=== PATIENT | male | born 1980 | race Caucasian/White ===

== ENCOUNTER → 2023-09-08 10:48 | Outpatient (CLI) | payer OTHER, SELFPAY ==
--- NOTE | ~2023-09-08 | US_ITS ---
US venous doppler [facility] DATE: 09/08/2023 11:25 INDICATION: Left calf pain TECHNIQUE: Real-time and color flow imaging and Doppler analysis of veins of both lower extremities COMPARISON: None FINDINGS: The great saphenous veins are patent. There is spontaneous and phasic flow and normal augme ntation and color flow signal and normal compression of the deep veins of both lower extremities. IMPRESSION: No evidence of deep venous thrombosis of the lower extremities Reviewed, dictated and finalized at Location A. Reviewed, dictated and finalized at location B. 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
== END ==
PROVIDERS: PCP Family Medicine; Visit Provider Family Medicine
DX: M79.662 Pain in left lower leg (principal)
CPT/HCPCS: 93970

== ENCOUNTER 2023-10-26 09:49 | Emergency (ER) | payer OTHER, SELFPAY ==
[2023-10-26 09:57] VITALS: BP 104/81; PULSE 73; RESP 16; TEMP 36.8; O2SAT 99
--- NOTE | 2023-10-26 10:33 | ED.URI ---
HPI - URI/Sore Throat General Chief Complaint: Upper Respiratory Infection Stated Complaint: sinus congestion Time Seen by Provider: 10/26/23 10:25 Source: patient, RN notes reviewed and old records reviewed Mode of arrival: ambulatory Limitations: no limitations History of Present Illness HPI Narrative: 43 year old male presents to [facility] with complaints of sinus pressure, sore throat,bilateral ear pain, headache, and cough since last Wednesday. Patient reports general malaise has not had any known fevers or any body aches. Patient states that his cough is mainly dry and he has had some greenish tinged nasal drainage. Patient reports no shortness of breath,no nausea or vomiting or diarrhea. MD elicited complaint: cough, sore throat, rhinorrhea, nasal congestion, sinus pain and other (ear pain bilaterally) Onset (ago): day(s) (6-7 days) Consistency: constant Pain scale (0-10): 3 Able to tolerate fluids by mouth: Yes Treatments prior to arrival: other (DayQuil and NyQuil) Related Data Allergies Allergy/AdvReac Type Severity Reaction Status Date / Time No Known Allergies Allergy Verified 10/26/23 09:51 Review of Systems Review of Systems: CONSTITUTIONAL: Reports malaise,no chills, sweats,no known fever EYES: Denies visual changes, redness, or discharge. ENT: Reports rhinorrhea, congestion, sinus pain, bilateral otalgia and positive for sore throat. CARDIOVASCULAR: Denies chest pain, palpitations, or edema. RESPIRATORY: Reports cough.? Denies dyspnea. GASTROINTESTINAL: Denies abdominal pain, nausea, vomiting, diarrhea SKIN: Denies rash or itching. MUSCULOSKELETAL: Denies myalgia. NEUROLOGIC:Reports headache. All systems reviewed & are unremarkable except as noted in HPI and below PMFSH Social History Social History (Updated 10/28/23 @ 08:16 by Maxine Wu NP) Smoking status: Never smoker Alcohol intake: current Alcohol use details: social Substance use type: does not use Living arrangements: with family Gender identity (if verbalized by the patient): Male Comments At time of signature, agree with nursing past medical, surgical, social and family history. There is no relevant family history pertinent to the presenting complaint Exam Narrative: GENERAL: Well-appearing, well-nourished, and in no acute distress. HEAD: Normocephalic EYES: PERRLA, conjunctivae clear ENT: Nares clear, turbinates edematous and erythematous, yellowish green discharge, sinus pressure, headache. Mucous membranes moist.Right TM red, Left TM pearly hernandez with dull light reflex; no tragal tenderness. Oropharynx erythematous without lesions. Tonsils not enlarged and without exudate, no drooling, no hoarseness, no trismus, uvula midline. NECK: Supple. No lymphadenopathy CHEST: Clear to auscultation, breath sounds equal. No wheezing, rhonchi, rales, or stridor. No respiratory distress, speaks in full sentences.cough,SAO2 99% on room air HEART: Regular rate and rhythm. No murmur heard. SKIN: Warm, dry, no rash. NEURO: Alert and oriented x3. PSYCH: Normal mood and affect Course Course Emergency Course: Patient is aware of diagnosis, understands and agrees to treatment plan.? Anticipatory guidance given.? Patient agrees to follow-up as directed and is aware of reasons to seek care at the emergency department. Portions of this record may have been created with voice recognition software Level of Care: Express Care Visit Vital Signs Vital signs: Vital Signs Temperature 36.8 C 10/26/23 09:57 Pulse Rate 73 10/26/23 09:57 Respiratory Rate 16 10/26/23 09:57 Blood Pressure 104/81 10/26/23 09:57 Pulse Oximetry 99 10/26/23 09:57 Temperature 36.8 C 10/26/23 09:57 Pulse Rate 73 10/26/23 09:57 Respiratory Rate 16 10/26/23 09:57 Blood Pressure 104/81 10/26/23 09:57 Pulse Oximetry 99 10/26/23 09:57 Reviewed MDM - URI/Sore Throat MDM Narrative Medical
== END 2023-10-26 10:41 | disposition home or self-care (01) ==
PROVIDERS: Emergency Provider Registered Nurse; PCP Family Medicine
DX: H66.91 Otitis media, unspecified, right ear (principal); J06.9 Acute upper respiratory infection, unspecified
CPT/HCPCS: 87081; 87880; 99213; G0463

== ENCOUNTER 2024-07-20 07:57 | Emergency (ER) | payer OTHER, SELFPAY ==
--- NOTE | 2024-07-20 08:23 | ED.EAR ---
HPI - Ear Problem General Chief complaint: Ear Stated complaint: bilateral ear pain Time Seen by Provider: 07/20/24 08:23 Source: patient, RN notes reviewed and old records reviewed Mode of arrival: ambulatory Limitations: no limitations History of Present Illness HPI Narrative: 43 year old male presents to [facility] care with complaints of bilateral ear pain with some ringing in his ears for the past month with recently nasal congestion and drainage.Patient reports that he has had no fevers cough, sore throat or any sharp pain to his ears. Patient reported he has not been taking any OTC medications for his symptoms. MD Complaint: ear pain and other (ringing in ears) Location: bilateral Severity: moderate Discharge from ear: Reports no Associated symptoms ear: tinnitus Treatment prior to arrival: none Related Data Allergies Allergy/AdvReac Type Severity Reaction Status Date / Time No Known Allergies Allergy Verified 07/20/24 08:23 Review of Systems Review of Systems: CONSTITUTIONAL: Denies malaise, chills, sweats, or fever. EYES: Denies visual changes, redness, or discharge. ENT: Reports rhinorrhea, congestion,no sinus pain,bilateral otalgia and no sore throat, reports bilateral ears ringing CARDIOVASCULAR: Denies chest pain, palpitations, or edema. RESPIRATORY: Reports no cough.? Denies dyspnea. GASTROINTESTINAL: Denies abdominal pain, nausea, vomiting, diarrhea SKIN: Denies rash or itching. MUSCULOSKELETAL: Denies myalgia. NEUROLOGIC: Denies headache. All systems reviewed & are unremarkable except as noted in HPI and below PMFSH Past Medical History Medical History Ear infection Kidney stone Surgical History Surgical History History of arthroscopic knee surgery Social History Social History Smoking status: Never smoker Alcohol intake: current Alcohol use details: social Substance use type: does not use Living arrangements: with family Gender identity (if verbalized by the patient): Male Comments At time of signature, agree with nursing past medical, surgical, social and family history. There is no relevant family history pertinent to the presenting complaint Exam Narrative: GENERAL: Well-appearing, well-nourished, and in no acute distress. HEAD: Normocephalic EYES: PERRLA, conjunctivae clear ENT: Nares clear, turbinates edematous and erythematous, clear discharge. Mucous membranes moist.Right TM red with some bulging left TM with dull light reflex no tragal tenderness. Oropharynx erythematous without lesions. Tonsils not enlarged and without exudate, no drooling, no hoarseness, no trismus, uvula midline. NECK: Supple. No lymphadenopathy CHEST: Clear to auscultation, breath sounds equal. No wheezing, rhonchi, rales, or stridor. No respiratory distress, speaks in full sentences.no cough noted SAO2 100% on room air HEART: Regular rate and rhythm. No murmur heard. SKIN: Warm, dry, no rash. NEURO: Alert and oriented x3. PSYCH: Normal mood and affect Course Course Emergency Course: Patient is aware of diagnosis, understands and agrees to treatment plan.? Anticipatory guidance given.? Patient agrees to follow-up as directed and is aware of reasons to seek care at the emergency department. Portions of this record may have been created with voice recognition software Level of Care: Express Care Visit Vital Signs Vital signs: Vital Signs Temperature 36.4 C L 07/20/24 08:24 Pulse Rate 77 07/20/24 08:24 Respiratory Rate 16 07/20/24 08:24 Blood Pressure 129/74 07/20/24 08:24 Pulse Oximetry 100 07/20/24 08:24 Temperature 36.4 C L 07/20/24 08:24 Pulse Rate 77 07/20/24 08:24 Respiratory Rate 16 07/20/24 08:24 Blood Pressure 129/74 07/20/24 08:24 Pulse Oximetry 100 07/20/24 08:24 Reviewed Medical Decision Making Differential Diagnosis Differential Diagnosis: URI, otitis media, ringing in ears, Medical Records Medical records reviewed: Yes I reviewed the external patient's medical records. Vital Signs Vital Signs: Vital Signs Temperature 36.4 C L 07/20/24 08:24 Pulse Rate 77 07/20/24 08:24 Respiratory Rate 16 07/20/24 08:24 Blood Pressure 129/74 07/20/24 08:24 Pulse Oximetry 100 07/20/24 08:24 Temperature 36.4 C L 07/20/24 08:24 Pulse Rate 77 07/20/24 08:24 Respiratory Rate 16 07/20/24 08:24 Blood Pressure 129/74 07/20/24 08:24 Pulse Oximetry 100 07/20/24 08:24 Critical Care Time Critical Care Time Critical Care Time: No Discharge Plan Discharge Clinical Impression: Otitis media, right Patient Disposition: Home, Self-Care Condition: Stable Instructions: Antibiotic Form, Ear Infection (GEN) Additional Instructions: Increase fluids especially juices and water [id number] cough and cold medicine of your choice for your symptoms Zyrtec Claritin or Miriam daily include plain Sudafed in a.m. heat to the face 20-30 minutes 4-6 times a day for pain Salt water gargles, throat lozenges or throat sprays as desired Antibiotic as directed--finished the medication If your symptoms persist, change or worsen significantly before you can contact your personal physician then please, without delay, go to the emergency department for further evaluation. Follow-up with PCP in 7-10 days or sooner if needed Follow up with PCP soon in regards to your blood pressure which is elevated above threshold for referral. Blood pressure above 120/80 may indicate pre-hypertension. 129/74 minimal systolic elevation Prescriptions: New amoxicillin 875 mg tablet 875 mg PO Q12H Qty: 20 0RF Rx Instructions: take all doses till completed Follow-up/Referrals: PHYSICIAN,GROCERY CLERK SELLING [Primary Care Provider] - Time of Disposition: 08:40 Quality [place] Coma Scale Eyes: Open Verbal: Oriented and Alert Motor: Follows Commands Jovita Coma Total Score: 15
[2024-07-20 08:24] VITALS: BP 129/74; PULSE 77; RESP 16; TEMP 36.4; O2SAT 100
== END 2024-07-20 08:46 | disposition home or self-care (01) ==
PROVIDERS: Emergency Provider Registered Nurse
DX: H66.91 Otitis media, unspecified, right ear (principal)
CPT/HCPCS: 99213; G0463

== ENCOUNTER 2024-11-02 09:29 | Emergency (ER) | payer OTHER, SELFPAY ==
--- NOTE | ~2024-11-02 | XR_ITS ---
EXAMINATION: XR chest 2V DATE: 11/02/2024 10:06 INDICATION: Cough and congestion. TECHNIQUE: Frontal and lateral views of the chest were obtained on 3 radiographs. COMPARISON: None. FINDINGS: There is no pneumonia, pleural effusion, or pneumothorax. The heart size is normal. There i s mild chronic anterior wedging of multiple vertebral bodies. IMPRESSION: 1. No acute cardiopulmonary disease. Reviewed, dictated and finalized at location [] AL HUSBANDRY PROFESSOR
--- NOTE | 2024-11-02 09:36 | ED.URI ---
HPI - URI/Sore Throat General Chief Complaint: Upper Respiratory Infection Stated Complaint: Upper Respiratory Symptoms Source: patient and RN notes reviewed Mode of arrival: ambulatory Limitations: no limitations History of Present Illness HPI Narrative: Patient is a 44-year-old male who presents to the [facility] with complaints of sinus pain and pressure, nasal congestion, and cough for the past week. Patient endorses a frequent nonproductive cough that is occasionally productive with brown sputum. He reports worsening nasal congestion. Denies recent fevers. Denies chest pain or shortness of breath. States that his symptoms started on Wednesday and seemed to get better over the weekend. However, by Wednesday his symptoms had exacerbated. Related Data Allergies Allergy/AdvReac Type Severity Reaction Status Date / Time No Known Allergies Allergy Verified 07/20/24 08:23 Review of Systems Review of Systems: CONSTITUTIONAL: Denies fever, chills, or sweats. EYES: Denies visual changes, redness, or discharge. ENT: Denies otalgia and sore throat. Reports nasal congestion. CARDIOVASCULAR: Denies chest pain, palpitations, or edema. RESPIRATORY: Reports cough but denies dyspnea. GASTROINTESTINAL: Denies abdominal pain, nausea, vomiting, or diarrhea. GENITOURINARY: Denies dysuria or hematuria. SKIN: Denies rash or itching. MUSCULOSKELETAL: Denies back pain, joint pain, or myalgia. NEUROLOGIC: Denies headache, numbness, or weakness. Pertinent positives per HPI. [facility] Past Medical History Medical History Kidney stone Ear infection Surgical History Surgical History History of arthroscopic knee surgery Social History Social History Smoking status: Never smoker Alcohol intake: current Alcohol use details: social Substance use type: does not use Living arrangements: with family Gender identity (if verbalized by the patient): Male Comments At the time of my signature, I reviewed and agree with the nursing past medical, surgical, social, and family history. There is no relevant family history pertinent to the patient complaint. Exam Narrative: GENERAL: This is a well-nourished, well-developed patient, in no apparent distress. HEAD: normocephalic, atraumatic. EYES: Sclera clear/white. Vision is grossly intact. EARS: External ears normal. Hearing grossly intact. NOSE: External nose normal with no obvious nasal discharge, nares without redness, no rhinorrhea. THROAT: Mucous membranes moist, posterior pharynx clear. NECK: Neck supple, non-tender without lymphadenopathy, masses or thyromegaly. CARDIOVASCULAR: Regular rate and rhythm without murmurs, gallops, or rubs. RESPIRATORY: Clear to auscultation. Breath sounds equal bilaterally. No wheezes, rales, or rhonchi. GASTROINTESTINAL: Abdomen soft, non-tender, nondistended. Bowel sounds are active. No hepato-splenomegaly, or palpable masses. No guarding. SKIN: warm, intact with no suspicious lesions or rash, good texture and turgor. NEURO: awake, alert, and oriented to person, place and time. There were no obvious focal neurologic abnormalities. Course Course Level of Care: Express Care Visit Vital Signs Vital signs: Vital Signs Temperature 98.7 F 11/02/24 09:49 Pulse Rate 83 11/02/24 09:49 Respiratory Rate 16 11/02/24 09:49 Blood Pressure 114/82 11/02/24 09:49 Pulse Oximetry 98 11/02/24 09:49 Temperature 98.7 F 11/02/24 09:49 Pulse Rate 83 11/02/24 09:49 Respiratory Rate 16 11/02/24 09:49 Blood Pressure 114/82 11/02/24 09:49 Pulse Oximetry 98 11/02/24 09:49 Reviewed MDM - URI/Sore Throat MDM Narrative Medical decision making narrative: Take steroids as directed. May use the inhaler every 4-6 hours as needed for coughing. Increase fluids at home. Avoid any and all smoke. May use a humidifier in the bedroom. Increase your Vitamin C. Follow-up with personal physician in 2-5 days. Differential Diagnosis Differential diagnosis: Likely upper respiratory infection, viral infection, bronchitis and other (pneumonia) Imaging Data Attestation: I personally reviewed and interpreted this imaging study as follows: Radiologist's impression: Close Chest X-Ray (Signed) Rigo Chen - 11/02/24 Launch?[facility] [address] [place] [address] XRay Report Signed Patient: Quan Summers : 1980 MR#: [id number] Age: 44 Acct:[id number] Loc: [id number] ADM Date: 11/02/24Attending Dr: Ordering Physician: Adrianne Boss APRN Date of Service: 11/02/24 Procedure(s): XR chest 2V Accession Number(s): [id number] cc: Adrianne Boss APRN; TUB PULLER PHYSICIAN~ EXAMINATION: XR chest 2V DATE: 11/02/2024 10:06 INDICATION: Cough and congestion. TECHNIQUE: Frontal and lateral views of the chest were obtained on 3 radiographs. COMPARISON: None. FINDINGS: There is no pneumonia, pleural effusion, or pneumothorax. The heart size is normal. There is mild chronic anterior wedging of multiple vertebral bodies. IMPRESSION: 1. No acute cardiopulmonary disease. Reviewed, dictated and finalized at location [] ICAL CARE UNIT MANAGER Please be advised this is a medical document. It is intended for [id number] communication. It is written in medical language and may contain unfamiliar abbreviations or verbiage. Medical documents are intended to carry relevant information, facts as evident, and the clinical opinion of the practitioner at the time of the encounter. This report may have been done utilizing a voice recognition system. Attempts have been made to correct errors. However, there may be uncorrected grammatical, spelling, and recognition errors present. The file time of this note does not necessarily represent the time of service. Dictated By: Rigo Chen MD 11/02/24 1007 Signed By: <Electronically signed by Rigo Chen MD in OV> 11/02/24 1008 Critical Care Time Critical Care Time Critical Care Time: No Discharge Plan Discharge Clinical Impression: Acute viral bronchitis Patient Disposition: Home, Self-Care Condition: Stable Instructions: Acute Bronchitis (ED) Additional Instructions: Take steroids as directed. May use the inhaler every 4-6 hours as needed for coughing. Increase fluids at home. Avoid any and all smoke. May use a humidifier in the bedroom. Increase your Vitamin C. Follow-up with personal physician in 2-5 days. Patient Language: [place] Prescriptions: New prednisone 50 mg tablet 50 mg PO DAILY 5 Days Qty: 5 0RF fluticasone propionate [Flonase Allergy Relief] 50 mcg/actuation spray,suspension 1 spray intranasal BID Qty: 16 0RF Rx Instructions: administer into each nostril albuterol sulfate [Ventolin HFA] 90 mcg/actuation HFA aerosol inhaler 2 puff inhalation QID PRN (Reason: shortness of breath or wheezing) Qty: 6.7 0RF No Action amoxicillin 875 mg tablet 875 mg PO Q12H Qty: 20 0RF Rx Instructions: take all doses till completed Follow-up/Referrals: PHYSICIAN,TUB PULLER [Primary Care Provider] - Time of Disposition: 10:19
[2024-11-02 09:49] VITALS: BP 114/82; PULSE 83; RESP 16; TEMP 37.1; O2SAT 98
== END 2024-11-02 10:22 | disposition home or self-care (01) ==
PROVIDERS: Emergency Provider Nurse Practitioner
DX: J20.8 Acute bronchitis due to other specified organisms (principal)
CPT/HCPCS: 71046; 99213; G0463

== ENCOUNTER 2025-01-26 11:01 | Outpatient (CLI) | payer OTHER, SELFPAY ==
--- NOTE | ~2025-01-26 | XR_ITS ---
Left elbow Technique: AP, oblique, and lateral views were obtained. Clinical History: Pain Findings: No acute fracture or dislocation is seen. Osseous alignment is anatomic. Joint spaces are p reserved. There is no displacement of the fat pads, and soft tissues are unremarkable. Impression: Unremarkable radiographs. Reviewed, dictated and finalized at location . Impression: Unremarkable radiographs.
== END 2025-01-26 11:02 | disposition home or self-care (01) ==
LOC: GOSHIMG 11:02
PROVIDERS: PCP Family Medicine; Visit Provider Family Medicine
DX: M25.522 Pain in left elbow (principal)
CPT/HCPCS: 73080

== ENCOUNTER 2025-01-26 11:17 | Outpatient (CLI) | payer OTHER, SELFPAY ==
--- OUTSIDE RECORDS SUMMARY | 2025-01-26 11:26 | XMS_ITS | Data Portability ---
Author Organization [facility] [employer], Main Office Address [address] [place] [address] Assessment No assessment recorded. Plan of Treatment Reminders Order Date Submit Date Provider Last Modified By Organization Details Last Modified Time Details Appointments None recorded. Lab None recorded. 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 Please call patient to schedule appointment . 2023 024 [email or web address] Vito Caballero [facility], [address] [facility], [facility] [address], [place], [address], 14:43:02 Procedures None recorded. Surgeries None recorded. Imaging US, duplex, venous, lower extremity - pain lateral lower left leg , plantr fasciitis left *Please call pt to schedule* 2023 024 [facility], [address], [place], [address], 4 16:46:34 Medication Orders None recorded. Patient TargetsNo targets recorded. Patient Instructions Encounter Date Encounter Id Patient Instructions Last Modified By Organization Details Last Modified Time 09/02/2023 [id number] Advised to get a Dr. 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 Please call patient to schedule appointment. Referring Physician: Laci Bucio, Family Medicine, Encounter Date: 09/02/2023 Results Created Date Observation Date Name Description Value Unit Range Abnormal Flag Note LastModifiedBy Organization Detail LastModifiedTime 08/06/20 21 08/06/2021 urina lysis , dipst ick Leukocytes (reference range: negative xiomara/ l) Negati ve Not Available [address] , [address], [place], [address], 08/06/2021 16:02:34 08/06/20 21 08/06/2021 urina lysis , dipst ick Nitrite (reference rage: negative mg/dl) negati ve Not Available [address] , [address], [place], [address], 08/06/2021 16:02:34 08/06/20 21 08/06/2021 urina lysis , dipst ick Urobilinogen (reference range: 0.2-1 mg/dl) 0.2 Not Available [address] , [address], [place], [address], 08/06/2021 16:02:34 08/06/20 21 08/06/2021 urina lysis , dipst ick Protein (reference range: negative mg/dl) Negati ve Not Available [address] , [address], [place], [address], 08/06/2021 16:02:34 08/06/20 21 08/06/2021 urina lysis , dipst ick pH (reference range: 5-7) 7.0 Not Available [address] , [address], [place], [address], 08/06/2021 16:02:34 08/06/20 21 08/06/2021 urina lysis , dipst ick Blood (reference range: negative [place]/ l) Negati ve Not Available [address] , [address], [place], [address], 08/06/2021 16:02:34 08/06/20 21 08/06/2021 urina lysis , dipst ick Specific [place] (reference range: 1.005-1.030) 1.020 Not Available [address] , [address], [place], [address], 08/06/2021 16:02:34 08/06/20 21 08/06/2021 urina lysis , dipst ick Ketone (reference range: negative mg/dl) Negati ve Not Available [address] , [address], [place], [address], 08/06/2021 16:02:34 08/06/20 21 08/06/2021 urina lysis , dipst ick Bilirubin (reference range: negative mg/dl) Negati ve Not Available [address] , [address], [place], [address], 08/06/2021 16:02:34 08/06/20 21 08/06/2021 urina lysis , dipst ick Glucose (reference range: negative mg/dl) Negati ve Not Available [address] , [address], [place], [address], 08/06/2021 16:02:34 08/06/20 21 08/06/2021 urina lysis , dipst ick Appearance Clear Not Available [address] , [address], [place], [address], 08/06/2021 16:02:34 08/06/20 21 08/06/2021 urina lysis , dipst ick Color Pale Yellow Not Available [id number] [address] , [address], [place], [address], 08/06/2021 16:02:34 09/08/19 24 09/08/2023 US, verito x, venou s, lower extre mity No observ ation record ed. [id number] [facility] [address], [place], [address], 09/15/2023 14:13:02 Result Notes None recorded. Problems Name Problem SNOMED Code Status Onset Date Resolution Date Notes Provider Name and Address Organization Details Recorded Time Inflammato ry disease of liver 698928591 Active Not Available [facility] 3 08:57:35 Acute sinusitis 82207166 Active Not Available [facility] 3 08:57:36 Microscopi c hematuria 102919499 Active Not Available [facility] 3 08:57:36 Pain in scrotum 15242691 Active Not Available [facility] 3 08:57:36 Lyme disease 20671587 Active Not Available [facility] 3 08:57:36 Flank pain 727140761 Active Not Available [facility] 3 08:57:36 Low back pain 132727748 Active Not Available [facility] 3 08:57:36 Sinusitis 88400747 Active Not Available [facility] 3 08:57:36 Pharyngiti s 318000273 Active Not Available [facility] 3 08:57:36 Upper respirator y infection 80289704 Active Not Available [facility] 3 08:57:36 Disorder of male genital organ 24130075 Active Not Available [facility] 3 08:57:36 Slowing of urinary stream 75874061 Active Not Available [facility] 3 08:57:36 Pain of left calf 3243922212793 109 Active 2023 ERICK Hinton [address], [place], [address] , [facility] [employer] 4 15:07:31 Plantar fasciitis 179805556 Active 2023 ERICK Hinton [address] [address], [place], [address] , [facility] [employer] 4 15:10:07 Problem Notes None recorded. Medical Equipment None Reported. Allergies Allergen ID Allergen Name Allergen Category Reaction Reaction Severity Criticality Documentation Date Start Date Code Code System Note Provider Name and Address Organization Details Recorded Time 54891 codeine medicatio n Not available Not available Not available 10/28/2022 2670 RxNorm Not Available [facility] 3 09:00:41 Medications Name Sig Start Date Stop Date Status Note LastModified by Organization Details LastModified Time azithromycin 250 mg tablet TK 2 TS PO AT ONCE TODAY THEN TK 1 T PO ONCE D FOR 4 DAYS active Not Available Not Available No t Available Cipro 500 mg tablet Take 1 tablet every 12 hours by oral route for 5 days. 04/28 completed Not Available Not Available Not Available amoxicillin 875 mg-potassium clavulanate 125 mg tablet Take 1 tablet every 12 hours by oral route. 03/21 completed Not Available Not Available Not Available Vitals Date Recorded Body weight Body mass index (BMI) Body height Body temperature Heart rate Oxygen saturation Oxygen saturation in Arterial blood by Pulse oximetry Systolic blood pressure Diastolic blood pressure Provider Name and Address Organization Details Last Updated DateTime 4 34058.9 2 g 23.9 kg/m2 185.42 cm 97.6 [degF] 86 /min 96 % 96 % 127 mm[Hg] 84 mm[Hg] Kim Matthews MA [employer] 4 14:53:48 Date Recorded Body mass index (BMI) Body height Oxygen saturation Oxygen saturation in Arterial blood by Pulse oximetry Heart rate Body temperature Body weight Systolic blood pressure Diastolic blood pressure Provider Name and Address Organization Details Last Updated DateTime 1 23.5 kg/m2 185.42 cm 99 % 99 % 71 /min 95.6 [degF] 66713.4 4 g 112 mm[Hg] 70 mm[Hg] Not Available [facility] 3 08:54:37 Social History None recorded. Functional Status None recorded. Mental Status None recorded. Family History Nothing Reported. Medical History No medical history recorded. Past Encounters Encounter ID Performer Location Encounter Start Date Encounter Closed Date Diagnosis/Indication Diagnosis SNOMED-CT Code Diagnosis ICD10 Code Diagnosis Note [id number] Oliver Dow MD [facility] Edwardscas llmauro [address] [facility] [place] [address] 08/06/2021 00:00:00 08/06/2021 16:36:17 [id number] Oliver Dow MD [facility] Debbie llmauro [address] [facility] [place] [address] 09/02/2023 14:41:21 09/02/2023 15:30:53 Pain of left calf 6127104141 399350 M79.662 Plantar fasciitis 839191 003 M72.2 Low back pain 378688195 M54.50 Health Concerns Section Related Observation LastModified by Organization Detai ls LastModified Time None Recorded Concern Status LastModified by Organization Details LastModified Time None Recorded Advance Directives Directive None Recorded Payers Encounter Date Sequence Insurance Name Policy Number Policy Sofia Covered Member ID Sofia Member ID Guarantor Name 09/02/2023 1 [facility] [id number] Quan Summers [id number] Quan Summers Notes Date Note Type Note Provider Name and Address Organization Details Recorded Time 09/02/2023 text/html pain bottom of left calf , does have plantar fasiitis. ERICK Hinton [address] [place] [address] [address], [facility] [address], [place], [address], [facility] 09/05/2023 09:05:58
--- OUTSIDE RECORDS SUMMARY | 2025-01-26 11:26 | XMS_ITS | Clinical Summary ---
Author Organization [facility] [employer] Address [address] [place] [address] Care Team Providers Care Thermostat Repairer Name Role Phone Unavailable Primary Care Provider Unavailabl e Source Comments [facility] [employer],non-owned Affiliates and Associated Physician Practices is amultiple site organization consisting of ambulatory clinics and hospital sitesin [place], [place], [place] and [place]. This disclosure is being madepursuant to the Care Everywhere program and may not contain all information available regarding this patient. Last updated 18.[facility] Allergies No known active allergies Medications * Be aware that medications may not be up to date on this document. Alwaysverify current medications with the patient. 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 Gender Identity Not on file Sexual Orientation Not on file Last Filed Vital Signs Vital Sign Reading Time Taken Comments Blood Pressure 106/70 11/04/2017 2:13 PM STEAM TRAP WORKER Pulse 68 11/04/2017 2:13 PM STEAM TRAP WORKER Temperature 36.5 C (97.7 F) 11/04/2017 2:13 PM STEAM TRAP WORKER Respiratory Rate 18 11/04/2017 2:13 PM STEAM TRAP WORKER Oxygen Saturation 98% 11/04/2017 2:13 PM STEAM TRAP WORKER Inhaled Oxygen Concentration - - Weight 74.8 kg (165 lb) 11/04/2017 2:13 PM STEAM TRAP WORKER Height 185.4 cm (6' 1) 11/04/2017 2:13 PM STEAM TRAP WORKER Body Mass Index 21.77 11/04/2017 2:13 PM STEAM TRAP WORKER Plan of Treatment Health Maintenance Due Date Last Done Comments OGEMILIE (AGES 45-75) - COL ON CA SCREENING 1979 COLON MONITORING 1979 COLONOSCOPY - COLON CA SCREENING 1979 CT COLONOGRAPHY - COLON CA SCREENING 1979 Colorectal Cancer Screening 1979 FIT - COLON CA SCREENING 1979 FLEX SIG - COLON CA SCREENING 1979 LIPID TESTING 1979 HIV SCREENING 1994 HEPATITIS C SCREENING 09/16/1997 DTAP/TDAP/TD VACCINES (1 - Tdap) 1998 HEPATITIS B VACCINE (1 of 3 - 19+ 3-dose series) 1998 COVID-19 VACCINE (1 - 2023-2 5 season) 2024 DEPRESSION SCREENING 08/30/2024 INFLUENZA VACCINE (Season Ended) 2025 ZOSTER VACCINE (1 of 2) 2029 HIB VACCINE Aged Out No longer eligi ble based on patient's age to complete this topic HPV VACCINE Aged Out No longer eligi ble based on patient's age to complete this topic MENINGOCOCCAL (Group B) VACC INE SHARED DECISION-MAKING Aged Out No longer eligibl e based on patient's age to complete this topic MENINGOCOCCAL GROUPS A/C/Y/W VACCINE Aged Out No longer eligible b ased on patient's age to complete this topic PNEUMOCOCCAL VACCINE Aged Out No long er eligible based on patient's age to complete this topic Insurance [facility]
[2025-01-26 16:35] LABS: Hematocrit 46.7 % (42.0-52.0); Hemoglobin 15.3 g/dL (14.0-18.0); Mean Corpuscular HGB Conc 32.8 g/dl (32-36); Mean Corpuscular Hemoglobin 30.6 pg (26-34); Mean Corpuscular Volume 93.4 fl (80-100); Mean Platelet Volume 9.8 fl (7.4-10.4); Platelet Count Result 199 k/mm3 (150-375); Red Cell Distribution Width 12.4 % (11.5-14.5); White Blood Count 6.2 K/mm3 (4.5-10.0)
[2025-01-26 20:00] LABS: Alanine Aminotransferase 30 U/L (6-50); Albumin Level 4.4 g/dL (3.5-5.1); Alkaline Phosphatase 51 U/L (38-126); Anion Gap 5 mmol/L (4-12); Aspartate Amino Transferase 67 U/L (17-59); Bilirubin,Total 0.7 mg/dL (0.2-1.3); Blood Urea Nitrogen 14 mg/dL (9-20); Calcium 9.6 mg/dL (8.4-10.2); Carbon Dioxide 29 mmol/L (22-30); Chloride 103 mmol/L (98-107); Cholesterol 174 mg/dL (0-200); Estimated Glomerular Filt Rate > 60; Glucose 95 mg/dL (65-110); HDL Direct 77 mg/dL; Potassium 4.4 mmol/L (3.4-5.0); Sodium 137 mmol/L (137-145); Triglycerides 50 mg/dL (<150)
[2025-01-26 20:11] LABS: LDL Cholesterol Direct 66 mg/dL
[2025-01-26 20:30] LABS: Prostate Specific Antigen 0.3 ng/mL (< OR = 4.0); Thyroid Stimulating Hormone 0.304 uIU/mL (0.465-4.680)
== END 2025-01-26 11:18 | disposition home or self-care (01) ==
LOC: ANHGOSHLAB 11:18
PROVIDERS: PCP Family Medicine; Visit Provider Family Medicine
DX: Z00.00 Encounter for general adult medical examination without abnormal findings (principal); Z79.899 Other long term (current) drug therapy; Z12.5 Encounter for screening for malignant neoplasm of prostate
CPT/HCPCS: 36415; 80053; 80061; 84153; 84443; 85027; G0103

== ENCOUNTER 2025-06-20 11:47 | Outpatient (CLI) | payer OTHER, SELFPAY ==
[2025-06-20 15:57] LABS: Alanine Aminotransferase 23 U/L (6-50); Albumin Level 4.6 g/dL (3.5-5.1); Alkaline Phosphatase 56 U/L (38-126); Aspartate Amino Transferase 44 U/L (17-59); Bilirubin,Total 0.8 mg/dL (0.2-1.3); Total Protein 7.8 g/dL (6.3-8.2)
[2025-06-20 16:33] LABS: Thyroid Stimulating Hormone 0.471 uIU/mL (0.465-4.680)
[2025-06-20 17:30] LABS: Free T4 Free Thyroxine 1.07 ng/dL (0.78-2.19)
== END 2025-06-20 11:48 | disposition home or self-care (01) ==
LOC: ANHGOSHLAB 11:47
PROVIDERS: PCP Family Medicine; Visit Provider Family Medicine
DX: R74.01 Elevation of levels of liver transaminase levels (principal); R79.89 Other specified abnormal findings of blood chemistry; Z79.899 Other long term (current) drug therapy
CPT/HCPCS: 36415; 80076; 84439; 84443

== ENCOUNTER 2025-07-18 01:10 | Day surgery (SDC) | payer OTHER, SELFPAY ==
[2025-07-06 12:14] VITALS: BMI 23.8
--- OUTSIDE RECORDS SUMMARY | 2025-07-18 05:29 | XMS_ITS | Clinical Summary ---
Author Organization [facility] [employer] Address [address] [place] [address] Care Team Providers Care Jukebox Checker Name Role Phone Unavailable Primary Care Provider Unavailabl e Source Comments [facility] [employer],non-owned Affiliates and Associated Physician Practices is amultiple site organization consisting of ambulatory clinics and hospital sitesin [place], [place], [place] and [place]. This disclosure is being madepursuant to the Care Everywhere program and may not contain all information available regarding this patient. Last updated 18.[facility] Allergies No known active allergies Medications * Be aware that medications may not be up to date on this document. Alwaysverify current medications with the patient. 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 Gender Identity Not on file Sexual Orientation Not on file Last Filed Vital Signs Vital Sign Reading Time Taken Comments Blood Pressure 106/70 11/04/2017 2:13 PM ENTERPRISE ENGINEER Pulse 68 11/04/2017 2:13 PM ENTERPRISE ENGINEER Temperature 36.5 C (97.7 F) 11/04/2017 2:13 PM ENTERPRISE ENGINEER Respiratory Rate 18 11/04/2017 2:13 PM ENTERPRISE ENGINEER Oxygen Saturation 98% 11/04/2017 2:13 PM ENTERPRISE ENGINEER Inhaled Oxygen Concentration - - Weight 74.8 kg (165 lb) 11/04/2017 2:13 PM ENTERPRISE ENGINEER Height 185.4 cm (6' 1) 11/04/2017 2:13 PM ENTERPRISE ENGINEER Body Mass Index 21.77 11/04/2017 2:13 PM ENTERPRISE ENGINEER Plan of Treatment Health Maintenance Due Date [...] of 3 - 19+ 3-dose series) 1998 HPV VACCINE (1 - 3-dose SCDM series) 2006 DEPRESSION SCREENING 08/30/2024 COVID-19 VACCINE (1 - 2024-2 6 season) 2025 INFLUENZA VACCINE (#1) 2025 ZOSTER VACCINE (1 of 2) 2029 [...] patient's age to complete this topic Insurance [facility]
[2025-07-18 08:39] VITALS: BP 110/69; PULSE 77; RESP 18; TEMP 36.3; O2SAT 99
[2025-07-18] MEDS: LACTATED RINGERS 1,000 ML 150 ML IV CONT (08:48)
--- NOTE | 2025-07-18 09:54 | P.PNAN_ITS ---
Anes - Initial Pre Proc Eval Procedure: Operation Date: 07/18/25 10:00 Proposed Procedures p Screening Colonoscopy - Valdemar Piper MD Date/Time: 07/18/25 09:54 Surgeon: Valdemar Piper MD Pre Op Diagnosis: Screening Patient Data Age: 44 Gender: M Height: 1.85 m Weight: 79 kg Last Vital Signs Temp 97.3 F L 07/18/25 08:39 Pulse 77 07/18/25 08:39 Resp 18 07/18/25 08:39 BP 110/69 07/18/25 08:39 Pulse Ox 99 07/18/25 08:39 O2 Del Method Room Air 07/18/25 08:39 Allergies Allergy/AdvReac Type Severity Reaction Status Date / Time No Known Allergies Allergy Verified 07/18/25 08:37 Home Medications ?Medication ?Instructions ?Recorded ?Confirmed ?Type No Home Medications 12/28/24 07/06/25 H istory Patient hx anesthesia problems: none Family hx anesthesia problems: none Results Review: All pre-operative results and documents have been reviewed as part of the pre- operative evaluation. [facility] Past Medical History Medical History History of broken leg Kidney stone Ear infection Surgical History Surgical History [place] teeth extracted History of arthroscopic knee surgery Social History Social History Smoking status: Never smoker Alcohol intake: current Drinks per week: 10 Alcohol use details: social Substance use: never Substance use type: does not use Living arrangements: with friend(s) Gender identity (if verbalized by the patient): Male Spiritual care concerns: No Anes - Eval Final PreProcedure Day of Procedure 07/18/25 09:54 Patient weight: normal Lungs: normal air movement Airway: Mallampati scale class II Neurological: alert and oriented Last oral intake: >/= 8 hours ASA classification: II Emergent: no Anesthetic plan: proceed Anesthesia type and monitoring: general GIVS and standard monitoring Results Review: All pre-operative results and documents have been reviewed as part of the pre- operative evaluation. Healthy, BMI 23. Active without cp or sob. Informed Consent: The patient's anesthetic plan and its attendant risks and benefits were discussed with the patient/family/POA. Questions were solicited and answers provided to the satisfaction of the patient/family/POA.
--- NOTE | 2025-07-18 09:54 | P.PNAN_ITS ---
Anes - Initial Pre Proc Eval Procedure: Operation Date: 07/18/25 10:00 Proposed Procedures p Screening Colonoscopy - Valdemar Piper MD Date/Time: 07/18/25 09:54 Surgeon: Valdemar Piper MD Pre Op Diagnosis: Screening Patient Data Age: 44 Gender: M Height: 1.85 m Weight: 79 kg Last Vital Signs Temp 36.3 C L 07/18/25 08:39 Pulse 77 07/18/25 08:39 Resp 18 07/18/25 08:39 BP 110/69 07/18/25 08:39 Pulse Ox 99 07/18/25 08:39 O2 Del Method Room Air 07/18/25 08:39 Allergies Allergy/AdvReac Type Severity Reaction Status Date / Time No Known Allergies Allergy Verified 07/18/25 08:37 Home Medications ?Medication ?Instructions ?Recorded ?Confirmed ?Type No Home Medications 12/28/24 07/06/25 H istory Patient hx anesthesia problems: none Family hx anesthesia problems: none Results Review: All pre-operative results and documents have been reviewed as part of the pre- operative evaluation. [facility] Past Medical History Medical History History of broken leg Kidney stone Ear infection Surgical History Surgical History [place] teeth extracted History of arthroscopic knee surgery Social History Social History Smoking status: Never smoker Alcohol intake: current Drinks per week: 10 Alcohol use details: social Substance use: never Substance use type: does not use Living arrangements: with friend(s) Gender identity (if verbalized by the patient): Male Spiritual care concerns: No Anes - Eval Final PreProcedure Day of Procedure 07/18/25 09:54 Patient weight: normal Heart: regular rate and rhythm Lungs: clear to auscultation Airway: Mallampati scale class 1 Neurological: alert and oriented Last oral intake: >/= 8 hours ASA classification: II Emergent: no Anesthetic plan: proceed Anesthesia type and monitoring: general GIVS and standard monitoring Results Review: All pre-operative results and documents have been reviewed as part of the pre- operative evaluation. Informed Consent: The patient's anesthetic plan and its attendant risks and benefits were discussed with the patient/family/POA. Questions were solicited and answers provided to the satisfaction of the patient/family/POA.
--- NOTE | 2025-07-18 09:54 | P.HP_ITS ---
H&P: HPI History of Present Illness Date/Time: 07/18/25 09:54 Chief Complaint: Screening colonoscopy Narrative: This is the patient's first colonoscopy. There are no GI symptoms and there is no family history of colorectal cancer. Review of Systems Review of Systems: All systems reviewed & are unremarkable except as noted in HPI and below PMFSH Past Medical History Medical History History of broken leg Kidney stone Ear infection Surgical History Surgical History [place] teeth extracted History of arthroscopic knee surgery Social History Social History Smoking status: Never smoker Alcohol intake: current Drinks per week: 10 Alcohol use details: social Substance use: never Substance use type: does not use Living arrangements: with friend(s) Gender identity (if verbalized by the patient): Male Spiritual care concerns: No Meds Home Medications and Allergies Home Medications ?Medication ?Instructions ?Recorded ?Confirmed ?Type No Home Medications 12/28/24 07/06/25 H istory Allergies Allergy/AdvReac Type Severity Reaction Status Date / Time No Known Allergies Allergy Verified 07/18/25 08:37 Vital Signs Vital Signs - 24 hr 07/18/25 08:39 Temperature 97.3 F L Pulse Rate 77 Respiratory Rate 18 Blood Pressure 110/69 Pulse Oximetry 99 Oxygen Delivery Room Air Exam Const: General: cooperative and healthy appearing Resp: Effort & Inspection: normal respiratory effort and able to speak in complete sentences Auscultation: clear to auscultation bilaterally Cardio: Rate: regular rate Rhythm: regular rhythm GI: Inspection: normal to inspection GI Palp: No No hepatosplenomegaly present Auscultation: normal bowel sounds Rectal Exam: deferred Skin: General skin exam: normal color Psych: Appearance: grossly normal Mental Status: mental status grossly normal Assessment and Plan Assessment and plan (1) Screening for colon cancer: Code(s): Z12.11 - Encounter for screening for malignant neoplasm of colon Status: Acute Assessment and Plan: The patient is deemed a good candidate for the procedure. Consent signed. Will proceed.
[2025-07-18] MEDS: SIMETHICONE ORAL SUSPENSION 20 MG/0.3 ML 30 ML BOTTLE 0.6 ML IRRIGATION (10:09)
[2025-07-18 10:18] VITALS: BP 108/69; PULSE 86; RESP 17; O2SAT 98
[2025-07-18 10:28] VITALS: BP 105/61; PULSE 70; RESP 14; O2SAT 100
[2025-07-18 10:38] VITALS: BP 109/68; PULSE 70; RESP 15; O2SAT 100
== END 2025-07-18 10:46 | disposition home or self-care (01) ==
PROVIDERS: PCP Family Medicine; Referring Provider Family Medicine; Visit Provider Internal Medicine Gastroenterology
PROC: 0DJD8ZZ Inspection of Lower Intestinal Tract, Via Natural or Artificial Opening Endoscopic (ICD-10-PCS; CPT 45378; principal; 2025-07-18 10:00)
DX: Z12.11 Encounter for screening for malignant neoplasm of colon (principal); Z98.890 Other specified postprocedural states; Z87.442 Personal history of urinary calculi
CPT/HCPCS: 45378; J2003; J2704; J7120